=== PATIENT | female | born 1990 | race Caucasian/White ===

== ENCOUNTER → 2016-11-26 | Outpatient (CLI) | payer OTHER ==
[~2016-11-26] VITALS: Ht 171.4 cm; Wt 131.3 kg
[~2016-11-26] MED LIST: B-12 100 MCG PO; B-121000 MCG PO; CLEOCIN HC150 MG/CAP PO; FLINTSTONES W/I1 CTB PO; OXYCODONE-ACETAMINOP PO; PERCOCET 325 MG1 TA2 PO; RIFADIN300 MG PO; VITAMIN D32000 IU PO
[2016-11-26 13:46] VITALS: BP 124/60; PULSE 89
== END ==
LOC: LIGHT 07:59
DX: E66.01 Morbid (severe) obesity due to excess calories (principal); Z68.41 Body mass index [BMI] 40.0-44.9, adult; Z71.3 Dietary counseling and surveillance

== ENCOUNTER 2016-12-07 13:11 | Inpatient (IN) | payer OTHER ==
[~2016-12-07] VITALS: Ht 172.7 cm; Wt 127.0 kg
[~2016-12-07 13:11] MED LIST changes: -B-121000 MCG PO; -CLEOCIN HC150 MG/CAP PO; -OXYCODONE-ACETAMINOP PO; -RIFADIN300 MG PO
[2016-12-26] VITALS (10 sets, daily range): BP systolic 113–235; BP diastolic 53–76; PULSE 51–79; TEMP 97.8–98.6
[2016-12-26] MEDS ORDERED: RIFADIN300 MG PO (11:57)
[2016-12-26] MEDS ORDERED: CLEOCIN HC150 MG/CAP PO (11:57)
[2016-12-26] MEDS ORDERED: B-121000 MCG PO (11:58)
[2016-12-26] MEDS ORDERED: OXYCODONE-ACETAMINOP PO (11:59)
[2016-12-27 01:44] VITALS: BP 135/82; PULSE 82; TEMP 97.5
[2016-12-27 06:30] VITALS: BP 131/78; PULSE 53; TEMP 97.8
[2016-12-27 09:40] VITALS: BP 134/80; PULSE 60; TEMP 97.8
[2016-12-27 14:30] VITALS: BP 145/88; PULSE 64; TEMP 98.4
== END 2016-12-27 16:15 | disposition home or self-care (01) | DRG 621 ==
LOC: SURG 12-26 10:17 → INPTSU 12-26 10:17 → SURG 12-26 13:30
PROVIDERS: Surgery
PROC: 0DB64Z3 Excision of Stomach, Percutaneous Endoscopic Approach, Vertical (ICD-10-PCS; principal; 2016-12-26 13:30)
DX: E66.01 Morbid (severe) obesity due to excess calories (principal); Z68.41 Body mass index [BMI] 40.0-44.9, adult; L73.2 Hidradenitis suppurativa
CPT/HCPCS: A9284; J0694; J1100; J1170; J1885; J2405; J2550; J2704; J2710; J2765; J3010; J7042; J7120

== ENCOUNTER → 2016-12-11 | Outpatient (CLI) | payer OTHER ==
[~2016-12-11] MED LIST changes: +B-121000 MCG PO; +CLEOCIN HC150 MG/CAP PO; +OXYCODONE-ACETAMINOP PO; +RIFADIN300 MG PO
== END ==
LOC: LIGHT 09:11
DX: Z01.818 Encounter for other preprocedural examination (principal)

== ENCOUNTER → 2017-01-07 | Outpatient (CLI) | payer OTHER ==
[~2017-01-07] VITALS: Ht 172.8 cm; Wt 122.2 kg
[2017-01-07 16:22] VITALS: BP 106/76; PULSE 84
== END ==
LOC: LIGHT 12:55
DX: E66.01 Morbid (severe) obesity due to excess calories (principal); Z68.41 Body mass index [BMI] 40.0-44.9, adult; Z71.3 Dietary counseling and surveillance

== ENCOUNTER → 2017-02-04 | Outpatient (CLI) | payer OTHER ==
[~2017-02-04] VITALS: Ht 174 cm; Wt 112.3 kg
[2017-02-04 17:37] VITALS: BP 100/70; PULSE 80
== END ==
LOC: LIGHT 16:27
DX: E66.01 Morbid (severe) obesity due to excess calories (principal); Z68.37 Body mass index [BMI] 37.0-37.9, adult; Z71.3 Dietary counseling and surveillance

== ENCOUNTER → 2017-06-24 | Outpatient (CLI) | payer OTHER ==
[~2017-06-24] VITALS: Ht 174 cm; Wt 85.3 kg
[~2017-06-24] MED LIST changes: +HAIRSKINNAILS PO; +YAZ 28 3 MG-0.01 TAB PO
[2017-06-24 15:42] VITALS: BP 106/66; PULSE 72
== END ==
LOC: LIGHT 09:34
DX: E66.3 Overweight (principal); Z68.28 Body mass index [BMI] 28.0-28.9, adult; Z71.3 Dietary counseling and surveillance; Z98.84 Bariatric surgery status
CPT/HCPCS: G0463

== ENCOUNTER → 2017-12-23 | Outpatient (CLI) | payer OTHER ==
[~2017-12-23] VITALS: Ht 174 cm; Wt 78.0 kg
[2017-12-23 16:08] VITALS: BP 100/70; PULSE 72
== END ==
LOC: LIGHT 15:38
DX: E66.3 Overweight (principal); Z68.26 Body mass index [BMI] 26.0-26.9, adult; Z71.3 Dietary counseling and surveillance; Z98.84 Bariatric surgery status
CPT/HCPCS: G0463